=== PATIENT | female | born 1945 | race Caucasian/White ===

== ENCOUNTER 2018-06-20 02:02 | Outpatient (CLI) | payer MEDICARE, OTHER, SELFPAY ==
--- NOTE | 2018-06-20 10:33 | DI.REPORT_ITS ---
SYMPTOMS/DIAGNOSIS: RIGHT SCIATICA WEAKNESS, M54.30 LUMBAR SPINE MRI: Routine noncontrast examination. No priors for comparison. The conus medullaris has a normal appearance and location. At L5-S1, there is disc desiccation. Endplate osteophytes and endplate degenerative signal changes are present. There is no significant central spinal canal stenosis. There is mild right neural foraminal narrowing. No significant left neural foraminal stenosis is seen. 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 Disc desiccation is present. There are hypertrophic changes of the facets. There is severe central spinal canal stenosis. There is moderately severe bilateral neural foraminal stenosis present. Endplate degenerative signal changes are seen. At L3-L4, there is grade 1 spondylolisthesis of L3 on L4. Degenerative disc disease is present. There is a diffuse disc bulge. There are hypertrophic changes of the facets and ligamentum flavum. The findings result in moderately severe central spinal canal stenosis. There is mild to moderate right and marked left neural foraminal stenosis. At L2-L3, there is diffuse disc bulge. There are degenerative changes of the facets. No focal disc herniation or central spinal canal stenosis is seen. No significant neural foraminal stenosis is present. Mild degenerative endplate signal changes are seen. At L1-L2, there is disc desiccation. Mild degenerative endplate signal changes are seen. There is a mild diffuse disc bulge, but no focal disc herniation or central spinal canal stenosis is seen. No significant neural foraminal stenosis is present. Marrow signal is within normal limits apart from the degenerative changes. IMPRESSION: 1. Marked degenerative changes in the lumbar spine resulting in central spinal canal and neural foraminal stenosis. 2. Severe central spinal canal stenosis and bilateral neural foraminal stenosis at L4-L5 due to the degenerative changes and the spondylolisthesis present. 3. Central spinal canal neural foraminal stenosis at L3-L4 due to the degenerative changes and the spondylolisthesis present.
== END 2018-06-20 02:03 ==
PROVIDERS: PCP Emergency Medicine; Visit Provider Emergency Medicine
DX: M54.31 Sciatica, right side (principal); M43.16 Spondylolisthesis, lumbar region; M51.36 Other intervertebral disc degeneration, lumbar region
CPT/HCPCS: 72148